=== PATIENT | male | born 1975 | race Caucasian/White ===

== ENCOUNTER 2020-12-13 13:47 | Emergency (ER) | payer BC ==
[~2020-12-13] VITALS: Ht 177.8 cm; Wt 90.7 kg
[~2020-12-13 13:47] MED LIST: LISI20TA26 PO
[2020-12-13 14:00] VITALS: BP 157/93
--- NOTE | 2020-12-13 14:14 | ED Upper Extremity ---
General Chief Complaint: Upper Extremity Stated Complaint: R HAND INJURY Source: patient Exam Limitations: no limitations History of Present Illness Date Seen by Provider: Dec 13, 2020 Time Seen by Provider: 14:01 Initial Comments Here with report of right hand injury to the fifth metacarpal area. Apparently he was angry this morning and punched the floor with his right hand. He is right-hand dominant. Complains of pain when making a fist for moving his fin gers, specifically the fourth and fifth. There is swelling of the lateral aspect of the hand. Denies other injury or concerns. Onset: this morning Severity: moderate Pain/Injury Location: right hand Method of Injury: direct blow Modifying Factors: Improves With Immobilization; Worse With Movement Allergies and Home Medications Allergies Coded Allergies: No Known Drug Allergies (Unverified , 03/16/15) Home Medications Lisinopril 20 Mg Tablet, 20 MG PO DAILY, (Reported) Patient Home Medication List Home Medication List Reviewed: Yes Review of Systems Constitutional: No chills, No fever Respiratory: No cough, No short of breath Cardiovascular: no symptoms reported Musculoskeletal: joint pain, joint swelling, muscle pain Skin: No change in color, No lesions Psychiatric/Neurological: Denies Numbness, Denies Weakness Past Ztuixpw-Eucddx-Yutram Hx Patient Social History Tobacco Use?: No Use of E-Cig and/or Vaping dev: No Substance use?: No Alcohol Use?: No Pt feels they are or have been: No Immunizations Up To Date Influenza Vaccine Up-to-Date: No; Not Current First/Initial COVID19 Vaccinat: october 2020 Second COVID19 Vaccination Luis Miguel: due COVID19 Vaccine Material Requirements Planning Manager: keon Past Medical History Surgeries: Yes Adenoidectomy, Tonsillectomy, Vasectomy Cardiac: Yes Atrial Fibrillation, Hypertension Reproductive Disorders: No Sexually Transmitted Disease: No Family Medical History Reviewed Nursing Family Hx Physical Exam Vital Signs Capillary Refill : Height, Weight, BMI Height: 5'10" Weight: 215lbs. oz. [id number]; BMI Method:Stated General Appearance: WD/WN, no apparent distress Cardiovascular: regular rate, rhythm, no murmur Respiratory: lungs clear, normal breath sounds Hand: limited ROM (Findings at the fourth and fifth metacarpal with swelling to the dorsum of the hand over those areas. Retains range of motion of the fingers although causes pain. No abrasions or significant ecchymosis noted.), soft tissue tenderness, stiffness, swelling Neurologic/Psychiatric: alert, oriented x 3 Skin: normal color, warm/dry Procedures/Interventions Splinting and Joint Reduction : Pre-Proc Neuro Vasc Exam: normal Post-Proc Neuro Vasc Exam: normal Hand-Made Type: orthoglass Splint Application: Short Arm Progress/Results/Core Measures Results/Orders My Orders Orders - ETELVINA CORONA MD Hand, Right, 3 Views (12/13/20 14:08) Progress Progress Note : Progress Note Seen and evaluated. X-ray right hand ordered. Ice pack given. Monitor patient. 0229: Fracture noted to the fifth metacarpal. U-shaped splint placed to the right hand with fingers and flexion for fourth and fifth finger. Tolerated splinting well with no complications. Discharged home with return p recautions. Patient verbalized understanding instructions and agreement with plan. Diagnostic Imaging Diagonstic Imaging: Xray Plain Films/CT/US/NM/MRI: other Comments [facility], [place] NAME: MARY SOSA [facility] REC#: [id number] PT STATUS: REG ER : 1975 PHYSICIAN: ETELVINA CORONA MD ADMIT DATE: 12/13/20/ER Draft Date of Exam:12/13/20 HAND, RIGHT, 3 VIEWS INDICATION: Hand pain, punched floor. TECHNIQUE: Three views of the right hand. CORRELATION STUDY: None FINDINGS: There is acute fracture involving the distal 5th metacarpal shaft. There is a prominent volar angulation slight impaction. There is also deformity about the 4th metacarpal head. Indeterminate whether this is additional fracture or more remote, previous fracture. Remaining osseous structures otherwise intact. Benign-appearing sclerotic foci over the middle phalanx of the middle finger. Rather prominent edema along the ulnar aspect of the hand in the region of the fracture. IMPRESSION: 1. Acute, mildly angulated impacted distal 5th metacarpal fracture. 2. Deformity about the 4th metacarpal head. This indeterminate whether this is additional acute fracture versus a perhaps previous, more remote fracture. Clinical history recommended. Dictated on workstation # [id number] Dict: 12/13/20 1422 Trans: 12/13/20 1425 CVB [id number] Interpreted by: MARY PALMER DO Electronically signed by: Departure Impression Primary Impression: Fracture of fifth metacarpal bone of right hand Qualified Codes: S62.336A - Displaced fracture of neck of fifth metacarpal bone, right hand, initial encounter for closed fracture Disposition: HOME, SELF-CARE Condition: Stable Departure-Patient Inst. Decision time for Depature: 14:31 Referrals: NO,LOCAL PHYSICIAN (PCP) Primary Care Physician RY WANG MD, MICHAEL P MD Patient Instructions: Hand Fracture ED Add. Discharge Instructions: All discharge instructions reviewed with patient and/or family. Voiced understanding. Keep splint clean and dry. Follow-up with the orthopedic doctors listed or of your choosing. You need to call on Monday morning to make appointment. You may take Tylenol/acetaminophen 1000 mg every 6-8 hours as needed for pain. You may take ibuprofen 600 mg every 8 hours as needed for pain. Use ice packs to area of concern 20 minutes/h as needed to reduce swelling. Elevate as needed to reduce swelling and pain. Return for worse pain, swelling, weakness, numbness or other concerns as needed. ETELVINA CORONA MD Dec 13, 2020 14:14
--- NOTE | 2020-12-13 14:25 | Diagnostic Imaging Report ---
INDICATION: Hand pain, punched floor. TECHNIQUE: Three views of the right hand. CORRELATION STUDY: None FINDINGS: There is acute fracture involving the distal 5th metacarpal shaft. There is a prominent volar angulation slight impaction. There is also deformity about the 4th metacarpal head. Indeterminate whether this is additional fracture or more remote, previous fracture. Remaining osseous structures otherwise intact. Benign-appearing sclerotic foci over the middle phalanx of the middle finger. Rather prominent edema along the ulnar aspect of the hand in the region of the fracture. IMPRESSION: 1. Acute, mildly angulated impacted distal 5th metacarpal fracture. 2. Deformity about the 4th metacarpal head. This indeterminate whether this is additional acute fracture versus a perhaps previous, more remote fracture. Clinical history recommended. Dictated by: Dictated on workstation # [id number]
== END 2020-12-13 14:35 | disposition home or self-care (01) ==
LOC: EDUNIT# 13:47 → ER 13:50
DX: S62.326A Displaced fracture of shaft of fifth metacarpal bone, right hand, initial encounter for closed fracture (principal); I10 Essential (primary) hypertension; Z79.899 Other long term (current) drug therapy; W22.8XXA Striking against or struck by other objects, initial encounter
CPT/HCPCS: 26605; 29125; 73130

== ENCOUNTER 2022-11-29 14:12 | Outpatient (CLI) | payer BC ==
[~2022-11-29] VITALS: Ht 177.8 cm; Wt 98.0 kg
[2022-11-29] MEDS ORDERED: CHOL200074 PO (16:37)
[2022-11-29] MEDS ORDERED: BIOT10TA PO (16:37)
[2022-11-29] MEDS ORDERED: ASPI-999 PO (16:37)
[2022-11-29] MEDS ORDERED: ZINC50TA51 PO (16:37)
[2022-11-29] MEDS ORDERED: POTA99CA PO (16:37)
[2022-11-29] MEDS ORDERED: LISI1TAB48 PO (16:37)
== END 2022-11-29 17:05 | disposition home or self-care (01) ==
LOC: PREOP 14:12
PROVIDERS: ATTEND Surgery
DX: Z01.818 Encounter for other preprocedural examination (principal)

== ENCOUNTER 2022-12-07 07:34 | Day surgery (SDC) | payer BC ==
[~2022-12-07] VITALS: Ht 177 cm; Wt 98.0 kg
[2022-12-07] VITALS (9 sets, daily range): BP systolic 107–140; BP diastolic 63–82
[~2022-12-07 07:34] MED LIST changes: +ASPI-999 PO; +BIOT10TA PO; +CHOL200074 PO; +LISI1TAB48 PO; +POTA99CA PO; +ZINC50TA51 PO
[2022-12-07] MEDS ORDERED: ceFAZolin INJECTION 2,000 MG in NS (IVPB) 50 ML 50 ML IV ONE (08:00)
[2022-12-07] MEDS ORDERED: fentaNYL INJECTION 100 MCG/2 ML VIAL ONE (08:15)
[2022-12-07] MEDS ORDERED: MIDAZOLAM INJ 2 MG/2 ML VIAL ONE (08:15)
[2022-12-07] MEDS ORDERED: dexAMETHasone INJ 10 MG/ML 1 ML VIAL ONE (08:16)
[2022-12-07] MEDS ORDERED: proPOfol INJECTION 200 MG/20 ML VIAL IV ONE (08:16)
[2022-12-07] MEDS ORDERED: ROCURONIUM 50 MG/5 ML VIAL IV ONE (08:16)
[2022-12-07] MEDS ORDERED: ONDANSETRON INJECTION 4 MG/2 ML (SDV) ONE (08:16)
[2022-12-07] MEDS ORDERED: LIDOCAINE PF 2% 5 ML VIAL ONE (08:16)
[2022-12-07] MEDS: LACTATED RINGERS 1,000 ML 1,000 ML IV PRN ×2 (08:23→10:15)
[2022-12-07] MEDS ORDERED: LIDOCAINE 1% w/EPI 1:100,000 20 ML VIAL ONE (08:37)
--- NOTE | 2022-12-07 08:44 | Progress Note-Pre Operative ---
Pre-Operative Progress Note Date H&P Reviewed: Dec 07, 2022 Time H&P Reviewed: 08:41 History & Physical: H&P Reviewed, Patient Examed, No changes noted Pre-Operative Diagnosis: Left inguinal hernia, site marked PB MARISCAL DO Dec 07, 2022 08:44
[2022-12-07] MEDS ORDERED: PHENYLEPHRINE 100 MCG/ML 10 ML (ANESTHESIA) SYR ONE (09:25)
[2022-12-07] MEDS ORDERED: GLYCOPYRROLATE INJ 0.2 MG/ML 2 ML VIAL ONE (10:24)
[2022-12-07] MEDS ORDERED: NEOSTIGMINE 1 MG/1ML 10 ML VIAL ONE (10:25)
--- NOTE | 2022-12-07 10:30 | Progress Note-Post Operative ---
Post-Operative Progess Note Surgeon (s)/[employer] Seal (s) Surgeon PB MARISCAL DO [employer]: Edgar Pre-Operative Diagnosis Left inguinal hernia, site marked Post-Operative Diagnosis Same plus incarcerated Left cord lipoma Procedure & Operative Findings Date of Procedure 12/07/22 Procedure Performed/Findings Laparoscopic Left Inguinal herniarraphy with mesh placement - Robotic assisted Excision of left cord lipoma After informed consent was obtained, the patient was brought to the operating room and placed on the operating table in a supine position. He was sterilely prepped and draped in a normal fashion. Local lidocaine was used to infiltrate the skin above the umbilicus. I made an incision with #11 blade, carried down to the skin into subcutaneous tissue and then deepened down the subcutaneous tissue with Bovie electrocautery down to the fascia. Fascia was incised with Bovie electrocautery and bluntly entered the abdomen, swept a finger around, placed 0 Vicryl [id number]-uv-[id number] suture and placed limited trocar port under direct visualization. Created pneumoperitoneum, able to visualize the hernia and took a picture of this and then placed two 8 mm ports about 10 cm on either side of the midline port using a local lidocaine, 11 blade for stab incision and then advanced the robotic port under direct visualization. Once this was in, I then placed the patient in Trendelenburg and then placed the working instruments, the fenestrated bipolar and the scissors. Looked on the right side, no real signs of inguinal hernia. I could see a large indirect hernia defect on the left side. Next, I came across the peritoneum approximately 8 cm away from the hernia defect, going across laterally starting lateral about 17cm and cutting toward the median umbilical ligament. I then carefully dissected the visceral peritoneum away and down and then in the midline, went through the parietal side and dissected down to the pubic tubercle, dissecting this down carefully pushing the peritoneum away, I was able to then visualize the pubic tubercle and Reginaldo's ligament. I went 2 cm posterior and at this point, we then had a critical view of the dissection, able to dissect 2 cm across the midline to the right side, 2 cm posterior to the Reginaldo's ligament, able to then parietalize the vas deferens and spermatic vessels right at the groove between Reginaldo's and iliac vein and able to dissect, make sure there was no peritoneum between those two, able to see the indirect hernia space, took a picture of this, looked at the femoral space (no hernia seen). Then I carefully teased out the hernia sac and could visualize the indirect hernia space. Next I looked on the cord and cord structures. There was a large cord lipoma that I was able to reduce and cut off. This was then removed through the port to get it out of the peritoneal space. I could clearly see the inguinal canal and the indirect space. Next I carried the posterior lateral dissection all the way out and then placed a 12 x 17 Midwieght Bard 3DMax mesh. It laid in nicely, covered the hernia defect and the rest of the area. It was above the peritoneum, sutured it at the pubic tubercle with a 3-0 Vicryl suture and tied this off. I then place another suture out laterally to help mesh lay down flat. This appeared to lay in very nicely. I then brought down the pneumoperitoneum to about 8 mmHg and then started c losing the peritoneum. Started laterally and used a 2-0 V-lock barbed suture to start a running stitch to close the peritoneum. This was closed nicely, took a picture of the closure at this point, then removed both needles had switched to a suture stock car driver from the scissors. The patient was then placed back supine, removed all ports under direct visualization, allowed pneumoperitoneum to escape and then closed the supraumbilical incision, closing the fascia with 0 Vicryl suture previously placed. Copiously irrigated all incisions and then closed the two small 8 mm incisions with two interrupted 4-0 undyed Monocryl subcuticular stitches and closed the supraumbilical incision with three interrupted undyed Monocryl subcuticular stitch. Area was cleaned and dried. Dermabond was placed. The patient tolerated the procedure. The sponge, instrument and needle counts were correct at the end of the case. Dr. Hernández assisted during this surgery by making incisions, closing incisions, helping to identify anatomy and passing/retrieving suture and needles. Anesthesia Type GET Estimated Blood Loss Estimated blood loss (mL): scant Specimens/Packing Specimens Removed left cord lipoma PB MARISCAL DO Dec 07, 2022 10:30
[2022-12-07] MEDS ORDERED: ACHD5005 PO (10:32)
--- NOTE | 2022-12-07 10:32 | Discharge Inst-Surgical ---
Discharge Inst-Surgical Depart Medication/Instructions New, Converted or Re-Newed RX: Transmitted to Pharmacy Patient Instructions Follow up Appt: Make appointment for 1 week. [phone] Instructions: No lifting greater than 20 pounds. No strenuous activity. May shower in 24 hours, no tub bath or soaking. Use incentive spirometer at home as directed. No Smoking Skin/Wound Care: May remove bandages in am. You need to leave the Dermabond on incision it will fall off on it's own. Symptoms to Report: Appetite Changes, Extremity Discoloration, Numbness/Tingling, Swelling Increased, Bleeding Excessive, Eyesight Changes, Pain Increased, Urine Color Change, Constipation(Persistent), Fever over 101 degree F, Pain/Pressure in chest, Urinating Difficulty, Cough Up/Vomit Blood, Heart Beat Irreg/Pounding, Pain/Pressure in jaw, Cramps in feet or legs, Lightheadedness, Pain/Pressure in shoulder, Diarrhea(Persistent), Memory Changes Suddenly, Questions/Concerns, Weight gain consecutive days, Dizziness/Fainting, Nausea/Vomiting, Shortness of Breath, Weight gain over 2 pounds If questions or concerns contact your physician Or seek help at emergency department. Activity Activity as Tolerated: Yes Activity Instructions: Avoid Stress to Incision Driving Instructions: No Driving/Refer to Dr. Pope Discharge Diet: No Restrictions Diet After 24 Hours: Clear Liquid if Nauseous If Any Problems/Questions/Issu: Contact Your Physician, Go to Emergency Room Skin/Wound Care Infection Signs and Symptoms: Increased Redness, Foul Odor of Wound, Increased Drainage, Skin Itchy or Has a Rash, Increased Swelling, Temperature Above 101 F Wound Care Comment: heating pad to shoulder or neck tonight for pain Bathing Instructions: Shower Ice Pack: Ice On and Off Site PB MARISCAL DO Dec 07, 2022 10:32
[2022-12-07] MEDS ORDERED: LIDOCAINE 1% w/EPI 1:100,000 20 ML VIAL INJ ONE (10:35)
[2022-12-07] MEDS ORDERED: SEVOFLURANE (ULTANE) 15 ML INHAL SOLN ONE (10:42)
[2022-12-07] MEDS ORDERED: morphine INJ 10 MG/ML 1ML (SYR OR VIAL) ONE (10:54)
[2022-12-07] MEDS ORDERED: morphine INJ 10 MG/ML 1ML (SYR OR VIAL) IVP ONE (11:00)
[2022-12-07] MEDS ORDERED: PROMETHAZINE INJ 25 MG/ML VIAL IVP ONE (11:00)
[2022-12-07] MEDS ORDERED: HYDROmorphone INJECTION 2 MG/ML VIAL IV ONE (11:00)
[2022-12-07] MEDS ORDERED: ONDANSETRON INJECTION 4 MG/2 ML (SDV) IVP PRN (11:00)
[2022-12-07] MEDS ORDERED: HYDROcodone/ACETAMINOPHEN 5 MG/325 MG TABLET PO ONE (11:45)
--- NOTE | 2022-12-07 12:56 | Anesthesia-General Post-Op ---
General Patient Condition Mental Status/LOC: Same as Preop Cardiovascular: Satisfactory Nausea/Vomiting: Absent Respiratory: Satisfactory Pain: Controlled Complications: Absent Post Op Complications Complications None Follow Up Care/Instructions Patient Instructions None needed. Anesthesia/Patient Condition Patient Condition Patient is doing well, no complaints, stable vital signs, no apparent adverse anesthesia problems. No complications reported per nursing. STEVIE PIERCE CRNA Dec 07, 2022 12:56
== END 2022-12-07 12:35 | disposition home or self-care (01) ==
LOC: SDC 07:34
PROVIDERS: ATTEND Surgery
DX: K40.90 Unilateral inguinal hernia, without obstruction or gangrene, not specified as recurrent (principal); D17.6 Benign lipomatous neoplasm of spermatic cord
CPT/HCPCS: 49650; 87081; C1781